=== PATIENT | male | born 2000 | race Caucasian/White ===

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

== ENCOUNTER 2020-03-21 14:38 | Observation (INO) | payer SELFPAY ==
[~2020-03-21] VITALS: Ht 175.2 cm; Wt 79.8 kg
[~2020-03-21 14:38] MED LIST: Motrin,Rufen800 MG PO; ORPHENADRINE C100 M1 PO
[2020-03-21 14:45] VITALS: BP 116/79
[2020-03-21 16:05] LABS: BASO % 0.3 % (0.0-1.0); EOS # 0.2 10*3/uL (0.0-0.4); EOS % 1.6 % (1.0-4.0); HEMATOCRIT 41.6 % (42.0-52.0); LYMPH # 2.4 10*3/uL (1.3-4.4); LYMPH % 25.7 % (27.0-41.0); MEAN CORPUSCULAR HGB 28.7 pg (27.0-31.0); MEAN CORPUSCULAR HGB CONC 32.9 g/dl (33.0-37.0); MEAN PLATELET VOLUME 9.1 fl (9.6-12.3); MONO # 0.7 10*3/uL (0.1-1.0); MONO % 8.1 % (3.0-9.0); NEUT # 5.9 10*3/uL (2.3-7.9); NEUT % 64.1 % (47.0-73.0); PLATELET COUNT AUTOMATED 334 10*3/uL (130-400); RED BLOOD COUNT 4.78 10*6/uL (4.50-5.90); RED CELL DISTRI WIDTH 12.4 % (0-14.5); WHITE BLOOD COUNT 9.2 10*3/uL (4.8-10.8)
[2020-03-21 16:29] LABS: ALBUMIN 3.4 gm/dl (3.1-4.5); ALKALINE PHOSPHATASE 94 U/L (45-117); BUN 12 mg/dl (7-24); CHLORIDE 108 mmol/L (98-107); CREATININE 0.77 mg/dL (0.70-1.30); POTASSIUM 3.8 mmol/L (3.5-5.1); SGOT/AST 13 IU/L (3-35); SGPT/ALT 19 U/L (12-78); SODIUM 140 mmol/L (136-145)
[2020-03-21 16:36] LABS: TROPONIN I < 0.015 ng/ml (<0.045)
[2020-03-21 18:01] LABS: BILIRUBIN Negative (Negative); BLOOD Negative (Negative); CLARITY Clear (Clear); COLOR Yellow (Yellow); GLUCOSE Negative (Negative); KETONE Negative (Negative); LEUKO ESTERASE Negative (Negative); NITRITE Negative (Negative); SPECIFIC GRAVITY 1.025 (1.001-1.030)
[2020-03-21 18:03] LABS: PH 8.5 (4.5-8.0)
[2020-03-21 18:08] LABS: RBC 0-2 rbc/hpf (0-2); WBC 0-2 wbc/hpf (0-5)
[2020-03-21 18:09] LABS: BACTERIA 2+; EPITHELIAL CELLS 0-2; MUCOUS TRACE
[2020-03-21 18:10] LABS: URINE AMPHETAMINES < 1000 (1000ng/ml); URINE BARBITURATES < 200 (200ng/ml); URINE BENZODIAZEPINES < 200 (200ng/ml); URINE CANNABINOIDS (THC) > 50 (50ng/ml); URINE COCAINE < 300 (300ng/ml); URINE METHADONE < 300 (300ng/ml); URINE OPIATES < 300 (300ng/ml)
[2020-03-21 18:16] LABS: URINE PHENCYCLIDINE < 25 (25ng/ml)
[2020-03-21 19:54] VITALS: BP 113/61
[2020-03-22 05:57] LABS: ALBUMIN 2.9 gm/dl (3.1-4.5); ALKALINE PHOSPHATASE 82 U/L (45-117); BUN 12 mg/dl (7-24); CHLORIDE 110 mmol/L (98-107); CHOLESTEROL 115 mg/dL (<200); CREATININE 0.85 mg/dL (0.70-1.30); FREE T4 1.45 ng/dl (0.76-1.46); HDL CHOLESTEROL 34 mg/dl (40-60); LDL CHOLESTEROL 65 mg/dL (9-159); POTASSIUM 3.8 mmol/L (3.5-5.1); SGOT/AST 10 IU/L (3-35); SGPT/ALT 20 U/L (12-78); SODIUM 140 mmol/L (136-145); TOTAL PROTEIN 7.2 gm/dL (6.4-8.2); TRIGLYCERIDES 78 mg/dl (<150); VLDL CHOLESTEROL 16 mg/dL (6-40)
[2020-03-22 06:11] LABS: BASO % 0.3 % (0.0-1.0); EOS # 0.3 10*3/uL (0.0-0.4); EOS % 2.6 % (1.0-4.0); HEMATOCRIT 40.6 % (42.0-52.0); LYMPH # 3.8 10*3/uL (1.3-4.4); LYMPH % 39.5 % (27.0-41.0); MEAN CELL VOLUME 89.4 fl (80.0-94.0); MEAN CORPUSCULAR HGB 28.4 pg (27.0-31.0); MEAN CORPUSCULAR HGB CONC 31.8 g/dl (33.0-37.0); MEAN PLATELET VOLUME 9.6 fl (9.6-12.3); MONO # 0.9 10*3/uL (0.1-1.0); MONO % 9.3 % (3.0-9.0); NEUT # 4.6 10*3/uL (2.3-7.9); NEUT % 47.9 % (47.0-73.0); PLATELET COUNT AUTOMATED 301 10*3/uL (130-400); RED BLOOD COUNT 4.54 10*6/uL (4.50-5.90); RED CELL DISTRI WIDTH 12.4 % (0-14.5); WHITE BLOOD COUNT 9.6 10*3/uL (4.8-10.8)
[2020-03-22 09:32] VITALS: BP 99/47
[2020-03-22] MEDS ORDERED: KEFLEX 500 MG E2 CAP PO (12:38)
== END 2020-03-22 14:23 | disposition home or self-care (01) ==
LOC: ED 14:38 → EDHOLD 18:32
PROVIDERS: Emergency Medicine; Internal Medicine; ADMIT Internal Medicine; ATTEND Internal Medicine
DX: L03.116 Cellulitis of left lower limb (principal); R70.0 Elevated erythrocyte sedimentation rate; D64.9 Anemia, unspecified; E87.8 Other disorders of electrolyte and fluid balance, not elsewhere classified; R79.82 Elevated C-reactive protein (CRP); E44.0 Moderate protein-calorie malnutrition; R82.71 Bacteriuria; E55.9 Vitamin D deficiency, unspecified; F19.10 Other psychoactive substance abuse, uncomplicated; Z71.6 Tobacco abuse counseling

== ENCOUNTER 2020-09-21 17:44 | Emergency (ER) | payer SELFPAY ==
[~2020-09-21] VITALS: Ht 180.3 cm; Wt 81.6 kg
[~2020-09-21 17:44] MED LIST changes: +KEFLEX 500 MG E2 CAP PO
== END 2020-09-21 20:28 | disposition left against medical advice (07) ==
LOC: ED 17:44
DX: R05 Cough (principal); J34.89 Other specified disorders of nose and nasal sinuses; J02.9 Acute pharyngitis, unspecified; Z53.21 Procedure and treatment not carried out due to patient leaving prior to being seen by health care provider

== ENCOUNTER 2020-10-12 15:09 | Emergency (ER) | payer SELFPAY ==
[~2020-10-12] VITALS: Ht 177.8 cm; Wt 77.1 kg
[2020-10-12] MEDS ORDERED: ZOFRAN4 MG PO (17:21)
== END 2020-10-12 17:24 | disposition home or self-care (01) ==
LOC: ED 15:09
DX: K52.9 Noninfective gastroenteritis and colitis, unspecified (principal); R55 Syncope and collapse

== ENCOUNTER 2020-10-28 17:16 | Emergency (ER) | payer SELFPAY ==
[~2020-10-28] VITALS: Ht 180.3 cm; Wt 90.7 kg
[~2020-10-28 17:16] MED LIST changes: +ZOFRAN4 MG PO
== END 2020-10-28 19:42 ==
LOC: ED 17:16
DX: R11.2 Nausea with vomiting, unspecified (principal); R19.7 Diarrhea, unspecified

== ENCOUNTER 2023-01-15 20:45 | Emergency (ER) | payer OTHER ==
[~2023-01-15] VITALS: Ht 180.3 cm; Wt 76.7 kg
[2023-01-15 22:10] LABS: URINE AMPHETAMINES Positive (1000ng/ml); URINE BARBITURATES Negative (200ng/ml); URINE BENZODIAZEPINES Negative (200ng/ml); URINE CANNABINOIDS (THC) Positive (50ng/ml); URINE COCAINE Positive (300ng/ml); URINE METHADONE Negative (300ng/ml); URINE OPIATES Negative (300ng/ml); URINE PHENCYCLIDINE Negative (25ng/ml)
== END 2023-01-15 22:30 | disposition home or self-care (01) ==
LOC: ED 20:45
PROVIDERS: Nurse Practitioner Family
DX: F15.10 Other stimulant abuse, uncomplicated (principal); F11.10 Opioid abuse, uncomplicated; F14.10 Cocaine abuse, uncomplicated; F17.200 Nicotine dependence, unspecified, uncomplicated

== ENCOUNTER 2023-02-22 17:09 | Emergency (ER) | payer OTHER | END 2023-02-22 18:09 | disposition left against medical advice (07) | LOC: ED 17:09 | DX: R10.13 Epigastric pain (principal); K92.0 Hematemesis; Z53.29 Procedure and treatment not carried out because of patient's decision for other reasons; F17.210 Nicotine dependence, cigarettes, uncomplicated; F19.10 Other psychoactive substance abuse, uncomplicated; F12.90 Cannabis use, unspecified, uncomplicated ==

== ENCOUNTER → 2023-07-22 | Emergency (ER) | payer MEDICAID | LOC: ED 09:34 | DX: L23.7 Allergic contact dermatitis due to plants, except food (principal); F17.200 Nicotine dependence, unspecified, uncomplicated; F19.10 Other psychoactive substance abuse, uncomplicated ==

== ENCOUNTER 2023-09-22 06:48 | Emergency (ER) | payer MEDICAID ==
[~2023-09-22] VITALS: Ht 170.1 cm; Wt 71.7 kg
[2023-09-22] MEDS ORDERED: MELOXICAM15 MG PO (07:21)
== END 2023-09-22 07:43 | disposition home or self-care (01) ==
LOC: ED 06:48
DX: S93.601A Unspecified sprain of right foot, initial encounter (principal); F17.200 Nicotine dependence, unspecified, uncomplicated; F19.10 Other psychoactive substance abuse, uncomplicated; F14.10 Cocaine abuse, uncomplicated; F15.10 Other stimulant abuse, uncomplicated; W19.XXXA Unspecified fall, initial encounter; Y93.89 Activity, other specified; Y92.89 Other specified places as the place of occurrence of the external cause; Y99.8 Other external cause status

== ENCOUNTER 2023-09-27 17:33 | Emergency (ER) | payer MEDICAID ==
[~2023-09-27 17:33] MED LIST changes: +MELOXICAM15 MG PO
[2023-09-27] MEDS ORDERED: IBUPROFEN 800 MG TAB PO ONE (17:55)
[2023-09-27 18:41] LABS: BILIRUBIN Negative (Negative); BLOOD Negative (Negative); CLARITY Cloudy (Clear); COLOR Yellow (Yellow); GLUCOSE Negative (Negative); KETONE Negative (Negative); LEUKO ESTERASE 3+ (Negative); NITRITE Negative (Negative); PH 6.5 (4.5-8.0); SPECIFIC GRAVITY 1.025 (1.001-1.030); UROBILINOGEN 0.2 E.U./dl (0.0-1.0)
[2023-09-27 18:50] LABS: BACTERIA 2+; RBC 0-2 rbc/hpf (0-2); WBC TNTC wbc/hpf (0-5)
== END 2023-09-27 20:00 | disposition left against medical advice (07) ==
LOC: ED 17:33
PROVIDERS: Physician Assistant Medical
DX: N39.0 Urinary tract infection, site not specified (principal); R31.9 Hematuria, unspecified; F17.200 Nicotine dependence, unspecified, uncomplicated; F19.10 Other psychoactive substance abuse, uncomplicated; Z53.29 Procedure and treatment not carried out because of patient's decision for other reasons

== ENCOUNTER 2023-12-13 06:40 | Emergency (ER) | payer MEDICAID ==
[~2023-12-13] VITALS: Ht 177.8 cm; Wt 68.0 kg
[2023-12-13] MEDS ORDERED: IBUPROFEN 800 MG TAB PO ONE (07:10)
== END 2023-12-13 08:32 | disposition home or self-care (01) ==
LOC: ED 06:40
DX: S00.83XA Contusion of other part of head, initial encounter (principal); F17.200 Nicotine dependence, unspecified, uncomplicated; F19.10 Other psychoactive substance abuse, uncomplicated; Y08.89XA Assault by other specified means, initial encounter; Y93.89 Activity, other specified; Y92.89 Other specified places as the place of occurrence of the external cause; Y99.8 Other external cause status